=== PATIENT | male | born 1945 | race Two or more races ===

== ENCOUNTER 2016-11-16 03:32 | Emergency (ER) | payer OTHER ==
[~2016-11-16] VITALS: Ht 170.2 cm; Wt 79.4 kg
[2016-11-16 04:29] VITALS: BP 153/69
== END 2016-11-16 05:48 | disposition left against medical advice (07) ==
LOC: ER 03:32
DX: R07.2 Precordial pain (principal); Z53.21 Procedure and treatment not carried out due to patient leaving prior to being seen by health care provider
CPT/HCPCS: 82962; 93005